=== PATIENT | male | born 1980 | race American Indian/Alaskan Native ===

== ENCOUNTER 2022-08-02 11:12 | Emergency (ER) | payer SELFPAY ==
[2022-08-02] MEDS ORDERED: CYCLOBENZAPRINE 10 MG TAB PO ONE (14:50)
[2022-08-02] MEDS ORDERED: KETOROLAC 10 MG TAB PO ONE (14:50)
[2022-08-02] MEDS ORDERED: dexAMETHasone 4 MG/ML VIAL PO ONE (14:50)
--- NOTE | 2022-08-02 15:30 | Emergency Department Report ---
ED Extremity Problem HPI - General Chief complaint: Neuro Symptoms/Deficit Stated complaint: ARM NUMBNESS, BACK PAIN Time Seen by Provider: 08/02/22 14:23 Source: patient Mode of arrival: Ambulatory Limitations: No Limitations - History of Present Illness Initial comments: 41-year-old black male with a past medical history of hypertension presents to the emergency department for evaluation of 2-week history of intermittent left arm and neck pain along with intermittent numbness and tingling to the left hand. He states that he initially had this problem several months ago when he slept wrong on his left arm and woke up with the symptoms but they resolved but since then has been coming back intermittently and over the last 2 weeks they have been significantly worse. He states that pain is a dull ache that is 2 on a 10 point scale. He denies fever, chest pain, shortness of breath, nausea, vomiting, dizziness, and diaphoresis. He states that he has not taken any medications for his symptoms. MD Complaint: extremity pain -: Gradual, week(s) (2) Location: left, upper extremity History of Same: Yes Radiation: none Severity scale (0 -10): 2 Quality: aching Consistency: intermittent Worsens with: palpation, other (Certain positions) Associated Symptoms: denies: chest pain, shortness of breath, fever, myalgias, arthralgias - Related Data Previous Rx's Medication Instructions Recorded Last Taken Type Acetaminophen/Codeine [Tylenol #3] 1 tab PO Q6H PRN #20 tab 08/19/15 Unknown Rx Cyclobenzaprine HCl [Flexeril 5 MG 5 mg PO Q8HR #20 tablet 08/19/15 Unknown Rx TAB] Ibuprofen [Motrin 800 MG tab] 800 mg PO Q8HR PRN #30 tablet 08/19/15 Unknown Rx Cyclobenzaprine [Flexeril] 10 mg PO TID PRN #30 tab 08/02/22 Unknown Rx Lidocaine [Lidoderm] 1 each TP DAILY PRN #10 patch 08/02/22 Unknown Rx Naproxen 500 mg PO BID 7 Days #14 tab 08/02/22 Unknown Rx methylPREDNISolone [Medrol 4MG 4 mg PO DAILY #1 pack 08/02/22 Unknown Rx DOSEPAK (21 tabs)] Allergies Allergy/AdvReac Type Severity Reaction Status Date / Time nickel [Nickel] Allergy Rash Verified 08/02/22 11:49 ED Review of Systems ROS: Stated complaint: ARM NUMBNESS, BACK PAIN Other details as noted in HPI Comment: All other systems reviewed and negative Constitutional: denies: chills, fever ENT: denies: congestion Respiratory: denies: shortness of breath, SOB with exertion, SOB at rest, stridor Cardiovascular: denies: chest pain, palpitations Gastrointestinal: denies: abdominal pain, nausea, vomiting Genitourinary: denies: urgency, dysuria Musculoskeletal: back pain Skin: denies: rash, lesions Neurological: denies: headache, weakness ED Past Medical Hx - Surgical History Additional Surgical History: tonsillectomy - Social History Smoking Status: Current Every Day Smoker Substance Use Type: None - Medications Home Medications: Home Medications Medication Instructions Recorded Confirmed Last Taken Type Acetaminophen/Codeine [Tylenol #3] 1 tab PO Q6H PRN #20 tab 08/19/15 Unknown Rx Cyclobenzaprine HCl [Flexeril 5 MG 5 mg PO Q8HR #20 tablet 08/19/15 Unknown Rx TAB] Ibuprofen [Motrin 800 MG tab] 800 mg PO Q8HR PRN #30 tablet 08/19/15 Unknown Rx Cyclobenzaprine [Flexeril] 10 mg PO TID PRN #30 tab 08/02/22 Unknown Rx Lidocaine [Lidoderm] 1 each TP DAILY PRN #10 patch 08/02/22 Unknown Rx Naproxen 500 mg PO BID 7 Days #14 tab 08/02/22 Unknown Rx methylPREDNISolone [Medrol 4MG 4 mg PO DAILY #1 pack 08/02/22 Unknown Rx DOSEPAK (21 tabs)] ED Physical Exam - General Limitations: No Limitations General appearance: alert, in no apparent distress - Head Head exam: Present: atraumatic, normocephalic - Eye Eye exam: Present: normal appearance. Absent: conjunctival injection, periorbital swelling - Neck Neck exam: Present: tenderness (Left side only that increases with palpation and causes numbness to the arm with deep palpation.), full ROM. Absent: lymphadenopathy - Respiratory Respiratory exam: Present: normal lung sounds bilaterally, chest wall tenderness. Absent: respiratory distress, wheezes, stridor - Cardiovascular Cardiovascular Exam: Present: regular rate, normal heart sounds - GI/Abdominal GI/Abdominal exam: Present: soft, normal bowel sounds. Absent: distended, tenderness, guarding, rebound, rigid - Extremities Exam Extremities exam: Present: normal inspection, normal capillary refill. Absent: pedal edema, joint swelling, calf tenderness - Expanded Upper Extremity Exam Left Shoulder Exam: Present: normal inspection, tenderness. Absent: full ROM, swelling, abrasion, laceration, ecchymosis, dislocation, erythema, tenderness over AC joint Upper Arm exam: Present: normal inspection Elbow exam: Present: normal inspection Vascular: Present: normal capillary refill, radial pulse. Absent: vascular compromise, Pallo - Back Exam Back exam: Present: normal inspection, tenderness (Left upper). Absent: CVA tenderness (R), CVA tenderness (L), vertebral tenderness - Neurological Exam Neurological exam: Present: alert, oriented X3, CN II-XII intact, normal gait, reflexes normal. Absent: motor sensory deficit - Psychiatric Psychiatric exam: Present: normal affect, normal mood - Skin Skin exam: Present: warm, dry, intact, normal color ED Course Vital Signs 08/02/22 11:45 Temperature 98.2 F Pulse Rate 77 Respiratory 20 Rate Blood Pressure 169/97 [Left] O2 Sat by Pulse 100 Oximetry ED Medical Decision Making - Medical Decision Making 41-year-old black male with a past medical history of hypertension presents to the emergency department for evaluation of 2-week history of intermittent left arm and neck pain along with intermittent numbness and tingling to the left hand. He states that he initially had this problem several months ago when he slept wrong on his left arm and woke up with the symptoms but they resolved but since then has been coming back intermittently and over the last 2 weeks they have been significantly worse. He states that pain is a dull ache that is 2 on a 10 point scale. He denies fever, chest pain, shortness of breath, nausea, vomiting, dizziness, and diaphoresis. He states that he has not taken any medications for his symptoms. Symptoms and physical assessment most consistent with radicular pain. Patient will be discharged home with Medrol Dosepak, Flexeril, and naproxen to take as directed. He is advised to follow-up with his primary care provider if no improvement or worsening symptoms. He is advised to return to the emergency department as needed. He verbalizes understanding of and agreement with plan of care. Critical care attestation.: If time is entered above; I have spent that time in minutes in the direct care of this critically ill patient, excluding procedure time. ED Disposition Clinical Impression: Cervical radicular pain Disposition: HOME / SELF CARE / HOMELESS Is pt being admited?: No Does the pt Need Aspirin: No Condition: Stable Instructions: Cervical Radiculopathy, [id number] Additional Instructions: Take medications as prescribed. Follow-up with your primary care provider if no improvement or worsening symptoms. Return to the emergency department as needed. Prescriptions: Cyclobenzaprine [Flexeril] 10 mg PO TID PRN #30 tab PRN Reason: Muscle Spasm Lidocaine [Lidoderm] 1 each TP DAILY PRN #10 patch PRN Reason: Pain, Moderate (4-6) methylPREDNISolone [Medrol 4MG DOSEPAK (21 tabs)] 4 mg PO DAILY #1 pack Naproxen 500 mg PO BID 7 Days #14 tab Referrals: PRIMARY CARE, [Primary Care Provider] - 3-5 Days Forms: Work/School Release Form(ED) Time of Disposition: 15:33
[2022-08-02 15:57] VITALS: BP 168/98
== END 2022-08-02 15:51 | disposition home or self-care (01) ==
LOC: ED 11:12
DX: M54.9 Dorsalgia, unspecified (principal); F17.200 Nicotine dependence, unspecified, uncomplicated; Z91.09 Other allergy status, other than to drugs and biological substances
CPT/HCPCS: 99282; J1100